=== PATIENT | male | born 1940 | race Caucasian/White ===

== ENCOUNTER → 2019-03-09 | Outpatient (CLI) | payer MEDICARE | END | disposition home or self-care (01) | LOC: LAB SHORT 12:30 → LAB 12:30 | DX: N39.0 Urinary tract infection, site not specified (principal) | CPT/HCPCS: 87077; 87086; 87186 ==

== ENCOUNTER 2023-01-03 13:22 | Emergency (ER) | payer OTHER ==
[~2023-01-03] VITALS: Ht 167.6 cm; Wt 73.9 kg
[2023-01-03 15:42] VITALS: BP 167/80
[2023-01-03] MEDS ORDERED: TOPI25 PO (15:55)
[2023-01-03] MEDS ORDERED: NEURONTIN300 MG PO (15:55)
[2023-01-03] MEDS ORDERED: HYDROCODONE-AC1 EAC7 PO (15:55)
[2023-01-03] MEDS ORDERED: ATEN50 PO (15:55)
[2023-01-03] MEDS ORDERED: NITROGLYCERIN0.4 M3 SL (15:55)
[2023-01-03] MEDS ORDERED: PLAVIX75 MG PO (15:56)
[2023-01-03] MEDS ORDERED: METFORMIN HCL500 M2 PO (15:56)
[2023-01-03] MEDS ORDERED: GLIP10 PO (15:56)
== END 2023-01-03 18:12 | disposition home or self-care (01) ==
LOC: ER 13:22
DX: S01.81XA Laceration without foreign body of other part of head, initial encounter (principal); S80.211A Abrasion, right knee, initial encounter; S20.319A Abrasion of unspecified front wall of thorax, initial encounter; Z91.041 Radiographic dye allergy status; W01.198A Fall on same level from slipping, tripping and stumbling with subsequent striking against other object, initial encounter
CPT/HCPCS: 12013; 70450; 71046; 72125; 93005; 93010; 99284-25; A9270

== ENCOUNTER → 2023-03-29 | Outpatient (CLI) | payer OTHER ==
[~2023-03-29] MED LIST: ATEN50 PO; GLIP10 PO; HYDROCODONE-AC1 EAC7 PO; METFORMIN HCL500 M2 PO; NEURONTIN300 MG PO; NITROGLYCERIN0.4 M3 SL; PLAVIX75 MG PO; TOPI25 PO
[2023-04-07 10:09] LABS: TRICYCLIC ANTIDEP Negative ng/mL (Cutoff=100)
== END | disposition home or self-care (01) ==
LOC: LAB SHORT 15:30 → LAB 15:30
PROVIDERS: Physician Assistant
DX: Z51.81 Encounter for therapeutic drug level monitoring (principal); Z79.899 Other long term (current) drug therapy
CPT/HCPCS: G0480; G0481

== ENCOUNTER → 2023-05-07 | Outpatient (CLI) | payer OTHER ==
[2023-05-10 16:47] LABS: AMITRIPTYLINE, QUANT, URN <100 ng/mL; CLOMIPRAMINE QUANT, URN <200 ng/mL; DESIPRAMINE QUANT, URN <100 ng/mL; DOXEPIN QUANT, URN <100 ng/mL; IMIPRAMINE QUANT, URN <100 ng/mL; NORCLOMIPRAMINE QUANT, URN <200 ng/mL; NORDOXEPIN QUANT, URN <100 ng/mL; NORTRIPTYLINE, QUANT, URN <100 ng/mL; PROTRIPTYLINE QUANT, URN <100 ng/mL
[2023-05-11 10:38] LABS: 6-ACETYLMORPHINE, URN, QUANT <10 ng/mL; CODEINE, URN, QUANT <20 ng/mL; HYDROCODONE, URN, QUANT 2138 ng/mL; HYDROMORPHONE, URN, QUANT 69 ng/mL; MORPHINE, URN, QUANT <20 ng/mL; NORHYDROCODONE, URN, QUANT 2549 ng/mL; NOROXYCODONE, URN, QUANT <20 ng/mL; NOROXYMORPHONE, URN, QUANT <20 ng/mL; OXYCODONE, URN, QUANT <20 ng/mL; OXYMORPHONE, URN, QUANT <20 ng/mL
== END ==
LOC: LAB 19:12 → LAB SHORT 19:12
PROVIDERS: Family Medicine
DX: Z51.81 Encounter for therapeutic drug level monitoring (principal); Z79.899 Other long term (current) drug therapy
CPT/HCPCS: G0480; G0481